=== PATIENT | female | born 1995 | race Caucasian/White ===

== ENCOUNTER 2018-12-16 18:05 | Emergency (ER) | payer OTHER, SELFPAY ==
[2018-12-16 18:10] VITALS: BP 101/80; PULSE 67; RESP 16; TEMP 36.9; O2SAT 100; BMI 28.9
[2018-12-16] MEDS: IBUPROFEN 400 MG TABLET 800 MG PO (18:48)
--- NOTE | 2018-12-17 00:50 | ED_ITS ---
HPI - URI/Sore Throat General Chief Complaint: Upper Respiratory Symptoms Stated Complaint: thinks she has the flu Time Seen by Provider: 12/16/18 18:11 Source: patient Mode of arrival: ambulatory Limitations: no limitations History of Present Illness HPI Narrative: 23-year-old female nonsmoker, otherwise healthy presents with 4-5 days of headache, sore throat, dry hacking cough, fever, nausea and body aches. Her has similar symptoms and has been sick for a few days longer than her. She is able to eat and drink without difficulty. She did not have her flu shot this year. MD Complaint: fever, cough and sore throat Onset (ago): day(s) Duration: constant Severity: moderate Exacerbating factors: nothing Able to tolerate fluids by mouth: Yes Context: sick contacts Associated symptoms: fever, chills, headache, sore throat, cough and nausea Related Data Previous Rx's Medication Instructions Recorded ondansetron 4 mg PO TID-QID PRN #10 tab 12/16/18 Allergies Allergy/AdvReac Type Severity Reaction Status Date / Time No Known Drug Allergies Allergy Verified 12/16/18 18:09 Review of Systems Constitutional Reports body ache(s), Reports chills, Reports fever(s), Reports headache(s), Denies lethargy and Denies weakness Eyes Denies change in vision, Denies eye discharge, Denies irritation and Denies loss of vision ENT Ears, Nose, Mouth, and Throat: Denies change in voice, Reports headache(s), Denies neck pain and Reports sore throat Cardiovascular Denies chest pain, Denies irregular heart rhythm, Denies lightheadedness, Denies palpitations, Denies dyspnea, Denies dyspnea on exertion and Denies orthopnea Respiratory Reports cough, Denies dyspnea, Denies dyspnea on exertion and Denies wheezing Gastrointestinal Gastrointestinal: Denies abdominal pain, Denies change in bowel habits, Denies diarrhea, Denies nausea and Denies vomiting Genitourinary Denies hematuria, Denies flank pain, Denies urinary incontinence and Denies urinary urgency Musculoskeletal Denies neck pain Integumentary/Breasts Denies pruritus, Denies erythema, Denies rash and Denies wounds Neurologic Denies confusion, Reports headache(s), Denies loss of vision and Denies weakness Psychiatric Denies anxiety, Denies confusion, Denies depression, Denies homicidal ideation and Denies suicidal ideation Endocrine Denies palpitations Hematologic/Lymphatic Denies easy bruising Allergic/Immunologic Denies wheezing Exam Narrative Exam Narrative: GENERAL: This is a well-nourished, well-developed patient, in mild distress. HEAD: Atraumatic. Normocephalic. No temporal or scalp tenderness. EYES: Pupils equal round and reactive. Extraocular motions intact. No scleral icterus. No injection or drainage. ENT: Nose without bleeding, purulent drainage or septal hematoma. Throat without erythema, tonsillar hypertrophy or exudate. Uvula midline. Airway patent. NECK: Trachea midline. No JVD or lymphadenopathy. Supple, nontender, no meningeal signs. CARDIOVASCULAR: Regular rate and rhythm without murmurs, gallops, or rubs. RESPIRATORY: Clear to auscultation. Breath sounds equal bilaterally. No wheezes, rales, or rhonchi. GASTROINTESTINAL: Abdomen soft, non-tender, nondistended. No hepato- splenomegaly, or palpable masses. No guarding. EXTREMITIES: No clubbing, cyanosis, or edema. No joint tenderness, effusion, or edema noted. BACK: Nontender without deformity or crepitance. No flank tenderness. NEURO: AOx3. SKIN: No rash or erythema. Initial Vital Signs Initial Vital Signs: Vital Signs Temperature 98.4 F 12/16/18 18:10 Pulse Rate 67 12/16/18 18:10 Respiratory Rate 16 12/16/18 18:10 Blood Pressure 101/80 12/16/18 18:10 Pulse Oximetry 100 12/16/18 18:10 Course Orders Ordered: ED Orders 12/16/18 18:10 Influenza A and B by PCR Rapid Stat Discontinued Medications Ibuprofen (Advil) 800 mg PO NOW ONE Stop: 12/16/18 18:48 Last Admin: 12/16/18 18:48 Dose: 800 mg Vital Signs - 8 hr 12/16/18 18:10 Temperature 98.4 F Pulse Rate 67 Respiratory Rate 16 Blood Pressure 101/80 Pulse Oximetry 100 MDM - URI/Sore Throat Lab Data Lab Results 12/16/18 Range/Units 18:10 Influenza A & B (PCR) Positive, type a A (Negative) Discharge Plan Departure Patient Disposition: Home Clinical Impression: Influenza Discharge Date/Time: 12/16/18 20:09 Instructions: DI for Influenza -- Adult Activity Restrictions/Additional Instructions: *You have been diagnosed with [ influenza a ] *What to do: *Take medications as directed: Your prescription has been electronically transmitted to [facility] in [place] at your request *Follow up with your primary care provider in 2-3 days, call for an appointment. Let them know you were seen in the Emergency Department and that we ask that you be seen in follow up *Return to ER if you should have any new, worsening or concerning symptoms Prescriptions: New ondansetron 4 mg tablet,disintegrating 4 mg PO TID-QID PRN (Reason: nausea and vomiting) Qty: 10 RF: 0 Stand Alone Forms: Work/School Release
== END 2018-12-16 20:09 | disposition home or self-care (01) ==
PROVIDERS: Emergency Provider Emergency Medicine
DX: J11.1 Influenza due to unidentified influenza virus with other respiratory manifestations (principal)
CPT/HCPCS: 87400; 99281; 99283

== ENCOUNTER → 2019-12-28 08:58 | Outpatient (CLI) | payer OTHER, SELFPAY | PROVIDERS: Visit Provider Obstetrics & Gynecology | DX: Z34.03 Encounter for supervision of normal first pregnancy, third trimester (principal); R82.90 Unspecified abnormal findings in urine; Z3A.32 32 weeks gestation of pregnancy | CPT/HCPCS: 87086 ==

== ENCOUNTER 2019-12-28 09:27 | Observation (INO) | payer OTHER, SELFPAY ==
[2019-12-28 13:01] LABS: Add Manual Diff / Slide Review NO; Alanine Aminotransferase 12 IU/L (<35); Albumin 3.8 g/dL (3.5-5.0); Albumin Globulin Ratio 1.2 (1.0-2.8); Alkaline Phosphatase 106 U/L (38-126); Aspartate Aminotransferase 19 IU/L (14-36); Basophils Absolute Auto 0 /uL (0-100); Basophils Percent Auto 0.3 % (0-2); Bilirubin Total 0.3 mg/dL (0.2-1.3); Blood Urea Nitrogen 8 mg/dL (7-17); Calcium 9.5 mg/dL (8.4-10.2); Carbon Dioxide 22 mmol/L (22-32); Chloride 104 mmol/L (98-107); Eosinophils Absolute Auto 0 /uL (0-450); Eosinophils Percent Auto 0.3 % (2-4); Estimated Glomerular Filt Rate > 60.0 mL/min (>60); Globulin 3.1 g/dL (1.7-4.1); Glucose 95 mg/dL (70-100); HEMOLYSIS < 15 (0-50); Hematocrit 33.5 % (36-46); Hemoglobin 11.8 g/dL (12.0-16.0); Lymphocytes Absolute Auto 2000 /uL (1100-4500); Lymphocytes Percent Auto 17.2 % (25-40); Mean Corpuscular HGB Conc 35.2 % (30-36); Mean Corpuscular Hemoglobin 32.6 PG (26-34); Mean Corpuscular Volume 92.6 fL (80-100); Monocytes Absolute Auto 500 /uL (0-900); Monocytes Percent Auto 4.6 % (3-14); Neutrophils Absolute Auto 9100 /uL (1500-7000); Neutrophils Percent Auto 77.6 % (50-75); Platelet Count 275 X10^3/uL (150-400); Potassium 4.2 mmol/L (3.4-5.1); Red Blood Cell Count 3.62 X10^6/uL (4.0-5.2); Sodium 137 mmol/L (137-145); Total Protein 6.9 g/dL (6.3-8.2); White Blood Cell Count 11.7 X10^3/uL (4.5-11.0)
--- NOTE | 2019-12-28 13:09 | PM.PN.1 ---
Subjective Subjective Date Patient Seen: 12/28/19 Time Patient Seen: 12:30 Interval history: Patient sent to L and D after establishing as transfer care in the office at 32 weeks. She reported falling on her knees yesterday at home. Also noted less movement overall recently, believes type of movement has just change. In the office on auscultation the baby was moving quite a bit, normal movement noted but sent her over for monitoring/NST due to the fall yesterday. I also ordered preeclamptic labs due to headache x 1-2 days duration, unrelieved with Tylenol this morning. She does have a history of chronic headaches and migraines and is fatigued, has been awakening frequently at night. She tried Tylenol but without relief. Denies scotomata, nausea, vomiting, abdominal pain. She also reported episodes of cramping, admits to poor oral hydration. Denies leakage of fluid. Reported increased vaginal discharge with itching and wet prep in office showed yeast. Exam Vital Signs (past 8 hours): Afebrile BP 110/66 Narrative Exam Narrative: Cervical exam in office 0/long cervix Initially on the toco she was having contractions every 5 minutes. Contractions gradually spaced after oral hydration to 8-10 minutes, now occasional. NST and extended EFM: 130, moderate variability, reactive, no decelerations Objective Labs Result Diagrams: 12/28/19 12:40 12/28/19 12:40 Labs: Laboratory Results - last 24 hr 12/28/19 12/28/19 12:40 12:40 WBC 11.7 H RBC 3.62 L Hgb 11.8 L Hct 33.5 L MCV 92.6 MCH 32.6 MCHC 35.2 RDW 13.0 Plt Count 275 Neut % (Auto) 77.6 H Lymph % (Auto) 17.2 L [place] % (Auto) 4.6 Eos % (Auto) 0.3 L Baso % (Auto) 0.3 Neut # (Auto) 9100 H Lymph # (Auto) 2000 [place] # (Auto) 500 Eos # (Auto) 0 Baso # (Auto) 0 Sodium 137 Potassium 4.2 Chloride 104 Carbon Dioxide 22 BUN 8 Creatinine 0.40 L Estimated GFR > 60.0 BUN/Creatinine Ratio 20.0 Glucose 95 Calcium 9.5 Total Bilirubin 0.3 AST 19 ALT 12 Alkaline Phosphatase 106 Total Protein 6.9 Albumin 3.8 Globulin 3.1 Albumin/Globulin Ratio 1.2 Assessment & Plan Assessment and plan (1) Decreased movement affecting management of in third trimester: Current visit: Yes Status: Acute Assessment & Plan narrative: NST reactive. Good movement noted on patient's abdomen during exam Also status post fall yesterday. EFM reassuring and spacing of contractions after hydration reassuring. Exam is benign. Preeclamptic labs ordered due to persistent mild headache due to lack of sleep. Labs normal, no signs of preeclampsia. BP normal. Plan: Discharge home, return for frequent contractions, vaginal bleeding, leakage of fluid, decreased movement, or abdominal pain. Follow-up appointment in 1 week. Continue better oral hydration. Rest today. Tomorrow may resume normal activity.
== END 2019-12-28 13:16 | disposition home or self-care (01) ==
PROVIDERS: Admitting Provider Obstetrics & Gynecology; Referring Provider Obstetrics & Gynecology; Visit Provider Obstetrics & Gynecology
DX: O36.8130 Decreased fetal movements, third trimester, not applicable or unspecified (principal); Z3A.32 32 weeks gestation of pregnancy; R51 Headache; W18.30XA Fall on same level, unspecified, initial encounter; R82.90 Unspecified abnormal findings in urine
CPT/HCPCS: 36415; 59025; 59050; 80053; 85025; 87086; G0378; G0379

== ENCOUNTER 2020-01-01 19:50 | Observation (INO) | payer OTHER, SELFPAY ==
[2020-01-01 20:21] LABS: RBC Urine None Seen (0-5/HPF)
[2020-01-01 20:22] LABS: Appearance Urine UA SL CLOUDY; Bilirubin Urine UA NEGATIVE (NEGATIVE); Color Urine UA YELLOW; Glucose Urine UA NEGATIVE (Negative); Ketones Urine UA NEGATIVE (NEGATIVE); Leukocyte Esterase Urine UA 3+ (NEGATIVE); Nitrite Urine UA NEGATIVE (Negative); Occult Blood Urine UA NEGATIVE (Negative); Protein Urine UA NEGATIVE (Negative); Specific Gravity Urine UA <=1.005 (1.000-1.035); Urobilinogen Urine UA 0.2 E.U./dL (0.2)
[2020-01-01 20:23] LABS: pH Urine UA 6.5 (4.5-8.0)
[2020-01-01 20:27] LABS: WBC Urine 5-10/HPF (0-5/HPF)
[2020-01-01 20:28] LABS: Bacteria Urine Few (2-10); Culture Indicated Urine Specimen Cultured; Squamous Epithelial Cell Urine 0-1 /HPF (0-5/HPF)
[2020-01-01] MEDS: NIFEdipine 10 MG CAPSULE PO ×4 (20:48→21:55)
--- NOTE | 2020-01-01 21:53 | P.TNLD_ITS ---
Visit Information Visit Information Date of evaluation: 01/01/20 Primary OB Provider: Nichole Fontanez On-call OB Provider: Leni Booker Reason for Evaluation: Yes rule out labor Comments/Additional reasons for admission: This patient is a 24yo @33+1 presenting to the center for intermittent cramping pain, bladder pressure, urinary frequency, and one episode of scant rust colored discharge on wiping. The patient denies LOF, reports +FM, and denies headache or any other obstetrical or PIH symptoms. Of note, the patient was recently diagnosed with a vaginal yeast infection on 12/27 and was prescribed vaginal monistat, but was confused about the duration of therapy, has not started treatment, and also has symptoms of this. The patient recently transferred care from the [facility], and reports that she is unaware of any complications or placental abnormalities. Vital Signs Vital Signs: 114/71, HR 97, T 36.2C PFSH Medical History 32 weeks gestation of (Acute) Anxiety and depression (Acute) Arm fracture, left (Acute) Decreased movement affecting management of in third trimester (Acute) Migraines (Acute) PTSD (post-traumatic stress disorder) (Acute) Surgical History Hx of tonsillectomy (Acute) [place] teeth removed (Acute ~2019) Family History Mother Depression Father Depression Grandmother Kidney disease Migraines Grandfather Lung disease Arthritis Grandfather No problems noted. 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) current occupational exposures/hazards: No special al needs: No Smoking Status: Never smoker second hand exposure: No ( does smoke but aware) alcohol intake: former (pre-) substance use type: does not use Review of Systems Constitutional Constitutional: Reports system reviewed and no additional complaints, except as documented Cardiovascular Cardiovascular: Reports system reviewed; no additional complaints, except as documented Respiratory Respiratory: Reports system reviewed and no additional complaints, except as documented Gastrointestinal Gastrointestinal: Reports as per HPI Genitourinary Genitourinary: Reports as per HPI Neurologic Neurologic: Reports system reviewed and no additional complaints, except as documented Exam GI Other: Per staff, abdomen non-tender Other: Per nursing staff, cervix very posterior, long, ?external os fingertip vs closed. No signs of vaginal bleeding on exam. Objective Labs Labs: Laboratory Results - last 24 hr 01/01/20 20:05 Urine Color Yellow Urine Appearance Sl cloudy Urine pH 6.5 Ur Specific Cassel <=1.005 Urine Protein Negative Urine Glucose (UA) Negative Urine Ketones Negative Urine Occult Blood Negative Urine Nitrate Negative Urine Bilirubin Negative Urine Urobilinogen 0.2 Ur Leukocyte Esterase 3+ H Urine RBC None seen Urine WBC 5-10/hpf H Ur Squamous Epith Cells 0-1 /hpf Urine Bacteria Few (2-10) H Ur Culture Indicated? Specimen cultured Evaluation Evaluation Baseline heart rate: 140 Variability: Average (6-10) monitor accelerations: Present monitor decelerations: Absent Uterine Contraction Intensity: Mild Laboratory results: Laboratory Tests 01/01/20 20:05 Urine Color Yellow Urine Appearance Sl cloudy Urine pH 6.5 Ur Specific Cassel <=1.005 Urine Protein Negative Urine Glucose (UA) Negative Urine Ketones Negative Urine Occult Blood Negative Urine Nitrate Negative Urine Bilirubin Negative Urine Urobilinogen 0.2 Ur Leukocyte Esterase 3+ H Urine RBC None seen Urine WBC 5-10/hpf H Ur Squamous Epith Cells 0-1 /hpf Urine Bacteria Few (2-10) H Ur Culture Indicated? Specimen cultured Diagnosis, Plan/Disposition Plan/Disposition Plan: Patient has UA c/w UTI, has a long and closed cervix, has spaced contractions, and has an untreated yeast infection. She will be discharged home with routine precautions, with keflex for her UTI and to use monistat for her yeast infection. OB Disposition: home
[2020-01-01] MEDS: cephALEXin 250 MG CAPSULE 500 MG PO (22:08)
== END 2020-01-01 22:30 | disposition home or self-care (01) ==
PROVIDERS: Admitting Provider Obstetrics & Gynecology; Referring Provider Obstetrics & Gynecology; Visit Provider Obstetrics & Gynecology
DX: O46.93 Antepartum hemorrhage, unspecified, third trimester (principal); O47.03 False labor before 37 completed weeks of gestation, third trimester; O98.813 Other maternal infectious and parasitic diseases complicating pregnancy, third trimester; Z3A.33 33 weeks gestation of pregnancy
CPT/HCPCS: 59025; 59050; 81001; 87086; G0378; G0379

== ENCOUNTER → 2020-01-04 16:02 | Outpatient (CLI) | payer OTHER, SELFPAY ==
[2020-01-04 17:06] LABS: Fetal Fibronectin Negative
== END ==
PROVIDERS: Visit Provider Obstetrics & Gynecology
DX: O47.00 False labor before 37 completed weeks of gestation, unspecified trimester (principal)
CPT/HCPCS: 82731

== ENCOUNTER 2020-01-04 16:18 | Observation (INO) | payer OTHER, SELFPAY ==
--- NOTE | 2020-01-04 18:37 | P.TNLD_ITS ---
Visit Information Visit Information Date of evaluation: 01/04/20 Primary OB Provider: Nichole Fontanez Reason for Evaluation: No pre-term labor Comments/Additional reasons for admission: 24-year-old G1 female sent from her visit to rule out frequent contractions. She was monitored 1 week ago for decreased movement and was noted to have contractions which spaced after hydration. She had had episodes of cramping during . Three days ago she was seen in L&D and had some contractions but without cervical change. Today she reported at a routine office visit that she felt the contractions were becoming stronger. Exam in the office cervix 0/long/posterior. Vital Signs Vital Signs: Afebrile, BP 113/67, pulse 100 In office speculum placed. Increased yellow discharge consistent with current yeast infection noted. FN collected On digital exam cervix 0/long. Repeat exam in L&D 2-1/2 hours later cervix 0/long/posterior [facility] Medical History (Updated 01/04/20 @ 18:45 by Nichole Fontanez MD) 33 weeks gestation of (Acute) Anxiety and depression (Acute) Arm fracture, left (Acute) Migraines (Acute) uterine contractions in third trimester, antepartum (Acute) PTSD (post-traumatic stress disorder) (Acute) Surgical History Hx of tonsillectomy (Acute) [place] teeth removed (Acute ~2019) Social History marital status: household members: spouse (Currently Depolyed) pets and animals: Yes (X 1 dog) education level: college ([employer]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 Reports good movement Objective Labs Labs: fibronectin collected today: negative Evaluation Evaluation Baseline heart rate: 130 Variability: Moderate (11-25) monitor accelerations: Present monitor decelerations: Absent Uterine Contraction Intensity: Mild Category of Tracing: I Cervical dilation (cm): 0 Cervical effacement (%): 0 station: -4 Laboratory results: FFN negative Comments: Contractions initially every 7-8 minutes, decreasing frequency to every 10+ minutes. She did have episode of increased contractions noted recently with a full bladder, resolved after emptying her bladder. Diagnosis, Plan/Disposition Final Diagnosis (1) uterine contractions in third trimester, antepartum: Current Visit: Yes Status: Acute Plan/Disposition Plan: No evidence of labor. Cervix is unchanged. Contractions space, more irregular after oral hydration. FFN is negative, reassuring that she is low risk to progress into labor. -Will discharge home. Given precautions to return if she feels contractions are becoming stronger or more frequent, for leakage of fluid, vaginal bleeding or decreased movement. -Follow-up appointment in 1 week with an ultrasound due to measuring size greater than gestational age today. -Advise continue with good hydration
== END 2020-01-04 18:30 | disposition home or self-care (01) ==
PROVIDERS: Admitting Provider Obstetrics & Gynecology; Referring Provider Obstetrics & Gynecology; Visit Provider Obstetrics & Gynecology
DX: O47.03 False labor before 37 completed weeks of gestation, third trimester (principal); O23.43 Unspecified infection of urinary tract in pregnancy, third trimester; Z3A.33 33 weeks gestation of pregnancy
CPT/HCPCS: 59025; 59050; 82731; G0378; G0379

== ENCOUNTER → 2020-01-10 14:13 | Outpatient (CLI) | payer OTHER, SELFPAY ==
--- NOTE | 2020-01-10 14:14 | DI.US.S_ITS ---
PROCEDURE: US OB LIMITED INDICATIONS: EFW; SLIM OUTSIDE/PRIOR DATING DATA: Last menstrual period (LMP): 05/14/19. LMP-based estimated date of delivery (JASWINDER): 02/18/20. First dating scan (date and location): 01/10/20. Estimated date of delivery (JASWINDER) from first dating scan: 02/07/20. TECHNIQUE: Real-time scanning was performed of the fetus, with image documentation. Endovaginal scanning: not performed COMPARISON: None. FINDINGS: A single living intrauterine gestation is present. Presentation: Vertex. Placenta: Placental position is posterior, without previa. Amniotic fluid index: 10.0 cm, normal range is 5-24 cm. heart rate: 145 beats per minute. Biparietal diameter measures 8.7 cm, 35 weeks zero days Head circumference measures 32.6 cm, 37 weeks zero days Abdominal circumference measures 33.7 cm, 37 weeks 4 days Femur length measures 6.7 cm, 34 weeks 3 days Composite gestational age 36 weeks zero days Estimated weight 2941 g, 93rd percentile Normal appearance of the face/orbits, spine, heart, chest, stomach, kidneys, urinary bladder, left upper and lower limbs. However the remaining anatomic survey incomplete and not well visualized due to advanced gestational age IMPRESSION: Single living intrauterine fetus in vertex presentation Normal SLIM Expected interval growth based on reported JASWINDER although outside comparison examination not available in PACS anatomic survey incomplete although within normal limits where visualized as above Dictated by: Nacho Bass M.D. on 01/10/2020 at 17:16 Approved by: Nacho Bass M.D. on 01/10/2020 at 17:21
== END ==
PROVIDERS: Referring Provider Obstetrics & Gynecology; Visit Provider Obstetrics & Gynecology
DX: O36.63X0 Maternal care for excessive fetal growth, third trimester, not applicable or unspecified (principal); Z3A.36 36 weeks gestation of pregnancy
CPT/HCPCS: 76815

== ENCOUNTER → 2020-01-24 10:17 | Outpatient (CLI) | payer OTHER, SELFPAY ==
[2020-01-25 10:17] LABS: Strep Grp B PCR POS for Grp B Strep
== END ==
PROVIDERS: Visit Provider Obstetrics & Gynecology
DX: Z34.03 Encounter for supervision of normal first pregnancy, third trimester (principal); Z3A.36 36 weeks gestation of pregnancy
CPT/HCPCS: 87653

== ENCOUNTER 2020-01-28 10:04 | Inpatient (IN) | payer OTHER, SELFPAY ==
[2020-01-28 12:38] LABS: Add Manual Diff / Slide Review NO; Basophils Absolute Auto 0 /uL (0-100); Basophils Percent Auto 0.2 % (0-2); Eosinophils Absolute Auto 0 /uL (0-450); Eosinophils Percent Auto 0.4 % (2-4); Hematocrit 33.6 % (36-46); Hemoglobin 11.5 g/dL (12.0-16.0); Lymphocytes Absolute Auto 1300 /uL (1100-4500); Lymphocytes Percent Auto 12.9 % (25-40); Mean Corpuscular HGB Conc 34.4 % (30-36); Mean Corpuscular Hemoglobin 32.3 PG (26-34); Mean Corpuscular Volume 93.9 fL (80-100); Monocytes Absolute Auto 600 /uL (0-900); Neutrophils Absolute Auto 8300 /uL (1500-7000); Neutrophils Percent Auto 80.5 % (50-75); Platelet Count 245 X10^3/uL (150-400); Red Blood Cell Count 3.58 X10^6/uL (4.0-5.2); White Blood Cell Count 10.3 X10^3/uL (4.5-11.0)
--- NOTE | 2020-01-28 12:40 | PM.OBHP.1 ---
OB HPI Date/Time Date of admission: 01/28/20 Date Patient Seen: 01/28/20 Time Patient Seen: 12:15 History of Present Condition Chief complaint: MATERNITY : 1 Para: 0 Estimated Date of Delivery: 02/18/20 Narrative: Hope Case is a 24 year old female @ 37wks by LMP and 11wk US who presented for evaluation of SROM. Had large gush of clear fluid at 0930 this morning. Lots of FM and occasional moderate contractions. No VB. Had uncomplicated PN care w/ [facility] and transfer to Dr. Fontanez @ 32wks. Spouse is deployed and her mother is on a plane here, will arrive around 9pm. Pt declines augmenting labor until closer to mother's arrival, if needed. Pt desires epidural in labor. Has used pencillin before without adverse reaction. History of Present care: good care Dating criteria: LMP confirmed by 1st trimester US Ultrasounds: normal mid trimester US Obstetrical complications: none and other Medical complications: psychiatric Preadmission Labs Blood type: A (+) positive -: Antibody screen: negative, GBS status: positive, HBsAG: negative, HIV: negative and RPR/VDLR: negative -: Chlamydia screen: not detected and Gonorrhea screen: not detected -: Rubella: immune and Varicella: unknown HCT: 33.6 HCAB: negative Sequential screen: negative 3 hr GTT: 3 hr (passed) Narrative: failed 1hr, passed 3hr gtt Evaluation Evaluation Baseline heart rate: 135 Variability: Moderate (11-25) monitor accelerations: Absent monitor decelerations: Absent Contraction Frequency (minutes): 8 Uterine Contraction Intensity: Mild Category of Tracing: I Comments: CE deferred for PROM declining augmentation. Last CE in clinic @36wks was closed. [facility] Medical History 33 weeks gestation of (Resolved) Anxiety and depression (Acute) Arm fracture, left (Acute) Migraines (Acute) uterine contractions in third trimester, antepartum (Acute) PTSD (post-traumatic stress disorder) (Acute) Surgical History Hx of tonsillectomy (Acute) [place] teeth removed (Acute ~2019) Family History Mother Depression Father Depression Grandmother Kidney disease Migraines Grandfather Lung disease Arthritis Grandfather No problems noted. 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: No special al needs: No Smoking Status: Never smoker second hand exposure: No ( does smoke but aware) alcohol intake: former (pre-) substance use type: does not use Meds Home Medications and Allergies Home Medications Medication Instructions Recorded Confirmed Type prenat.vits,jong,ijw-jrch-jznlt 1 tab PO DAILY 12/23/19 01/10/20 History sertraline 50 mg tablet 50 mg PO DAILY #90 tab 12/28/19 01/10/20 Rx probiotic PO 01/04/20 01/10/20 History triamcinolone acetonide 0.1 % 1 applictn TOP BID 14 Days #30 gram 01/04/20 01/10/20 Rx topical ointment Allergies Allergy/AdvReac Type Severity Reaction Status Date / Time nitrofurantoin Allergy Hives Verified 01/10/20 15:36 [From Macrobid] phenazopyridine [From Azo] Allergy Hives Verified 01/10/20 15:36 Review of Systems Review of Systems ROS: Yes All systems reviewed with the patient and are negative except as otherwise documented Exam Vital Signs (past 8 hours): BP 117/75, HR-101, T36.4 Presentation: vertex Estimated Weight (lbs): 7 Amniotic Fluid: clear Other: Vertex by Addy's Objective Labs Result Diagrams: 01/28/20 12:25 Assessment and Plan Assessment and Plan Assessment and Plan narrative: Admit, routine orders w/ PCN for GBS. Labor support PRN. May have epidural when requested, aware and planning to place it around 3pm. Counseled on options for active vs expectant management of PROM and pt elects expectant management at this time. Reassess in 4 hours or sooner, PRN. Time Spent with Patient Total time spent with greater than 50% in coordination of care (as documented) at patient's floor/unit and/or counseling patient:: 25 - 35 minutes
[2020-01-28] MEDS: PENICILLIN G POTASSIUM 5,000,000 UNIT in DEXTROSE 5% IN WATER 250 ML IV (12:45)
[2020-01-28] MEDS: LACTATED RINGERS 1,000 ML 100 ML IV ×2 (12:45→17:00)
--- NOTE | 2020-01-28 15:00 | PM.OBPNLAB ---
Date/Time Date Patient Seen: 01/28/20 Time Patient Seen: 15:00 Pain Control Pain control: tolerating well Comments: Feeling ocnstant back pain and rare, mild to moderate contractions. Planning epidural soon. Has already made a plan w/ . Pelvic Exam station: -4 Comments: deferred, not yet in active labor Contractions Contractions on admission: irregular Monitor mode: External Contraction frequency (min): 8 Contraction intensity: Mild Status status: Category l Heart Rate Baseline: 135 Monitor Accelerations: Absent Monitor Decelerations: Absent Monitor Variability: Moderate Comments: May switch to IA Assessment and Plan Assessment: other (PROM x 6 hours, not in labor) Plan: continuous present management Comments: Epidural when requested, Reassess in 4-6 hours.
[2020-01-28] MEDS: PENICILLIN G POTASSIUM 3,000,000 UNIT/50 ML FROZ.PIGGY 100 UNIT IV ×2 (17:00→21:11)
[2020-01-28 18:36] VITALS: BP 117/75
--- NOTE | 2020-01-28 18:52 | PM.OBPNLAB ---
Date/Time Date Patient Seen: 01/28/20 Time Patient Seen: 18:40 Pain Control Pain control: epidural Comments: Patient comfortable. BP 121/81, [id number], [id number]%, T36.1C Temporal 2nd dose of PCN prophylaxis starting now Pelvic Exam Dilation (cm): 2 Effacement (%): 50 station: -4 Amniotic membrane status: Leaking Comments: Clear fluid Checked by RN immediately after epidural placement Contractions Contractions on admission: irregular Monitor mode: External Contraction frequency (min): 5 Contraction duration (min): 1 Contraction phase: Resting Contraction intensity: Mild Status status: Category l Heart Rate Baseline: 125 Monitor Accelerations: Present Monitor Decelerations: Absent Monitor Variability: Moderate Assessment and Plan Assessment: other Plan: begin patient augmentation Comments: Counseled on recommendation for pitocin augmentation, pt consents. Reassess in 4-6 hours or sooner, PRN.
[2020-01-28] MEDS: OXYTOCIN PREMIX 30 UNIT/500 ML PLAST..BAG IV (19:36)
[2020-01-28] MEDS: SERTRALINE 50 MG TABLET PO (21:11)
--- NOTE | 2020-01-29 00:51 | PM.OBPNLAB ---
Date/Time Date Patient Seen: 01/29/20 Time Patient Seen: 12:30 Pain Control Pain control: epidural Comments: VS: BP 108/56, HR96, T37.2C Temporal Pelvic Exam Dilation (cm): 5 Effacement (%): 90 station: -1 Amniotic membrane status: Leaking Contractions Contractions on admission: irregular Monitor mode: External Pitocin rate (mU/min): 6 Contraction frequency (min): 2 Contraction duration (min): 60 Contraction pattern: Regular Contraction phase: Resting Contraction intensity: Strong/Firm Status status: Category l Heart Rate Baseline: 145 Monitor Accelerations: Present Monitor Decelerations: Variable Monitor Variability: Moderate Assessment and Plan Assessment: active labor Plan: continuous present management
[2020-01-29] MEDS: PENICILLIN G POTASSIUM 3,000,000 UNIT/50 ML FROZ.PIGGY 100 UNIT IV ×2 (01:01→05:20)
[2020-01-29] MEDS: LACTATED RINGERS 1,000 ML 100 ML IV (01:05)
[2020-01-29] MEDS: FENT 2MCG/ML BUPIV 0.125% EPI 200 MCG/100 ML PLAST..BAG 10 MCG EPIDURAL (01:34)
--- NOTE | 2020-01-29 08:34 | P.PCNOB_ITS ---
Events: Labor Augmentation Labor & Delivery Delivery date: 01/29/20 Intrapartal events: None Cervical ripening method: none Induction method: per pitocin protocol Delivery augmentation: pitocin Delivery monitor: external FHT and external uterine Route of delivery: L&D Laceration Description: None Estimated blood loss (mL): 100 Anesthesia type: Epidural Narrative: Pt was examined and found to be 10/100%/+2 station at 0425. Pitocin was off at this time. FHR Cat I. Pushing was initiated at 0430. Coaching and encouragement and pitocin augmentation led to slow, but steady descent of vertex. Fluid remained clear throughout labor (total ROM 23.5 hours) and there were no signs of infection. NSVB of a viable baby boy in direct OA position w/ no nuchal cord @ 0850. Shoulders were transverse and patient was unable to push d/t fatigue. CNM manually reduced both arms and lifted to maternal abdomen for drying and stimulation. At 30 seconds of life there was minimal respiratory effort, so the cord was double clamped and cut and was taken to warmer for NRP. HR>100, no respiratory effort. PPV was given for approximately 45 seconds with appropriate rise in color, SpO2 and then respiratory effort. Pitocin was increased to 350mL/hr for AMTSL. Hospital cord blood hold sample was collected. Gentle cord traction and single maternal push led to spontaneous, Schultze delivery of an apparently intact placenta, membranes and 3VC @ 0823. Fundus immediately firm and bleeding minimal. [place] was placed back on maternal chest for chet-hy-tibf. Vagina and perineum inspected and intact with moderate edema. QBL 100mL. Baby 1: Infant gender: Male Presentation: vertex Placenta delivery description: Spontaneous cord vessel description: 3 Vessels score (1 min): 4 score (5 min): 7 score (10 min): 8 Plan for aftercare: Routine PP orders. Anticipate d/c to home in 24-36 hours.
[2020-01-29] MEDS: DERMOPLAST SPRAY 20% 60 ML 1 SPRAY TOP (12:06)
[2020-01-29] MEDS: DOCUSATE 100 MG CAPSULE PO (12:07)
[2020-01-29] MEDS: IBUPROFEN 600 MG TABLET PO ×2 (12:07→18:11)
[2020-01-29] MEDS: OXYCODONE IR 5 MG TABLET PO (17:10)
[2020-01-29] MEDS: SERTRALINE 50 MG TABLET PO (21:27)
[2020-01-30] MEDS: IBUPROFEN 600 MG TABLET PO ×2 (00:47→08:32)
--- NOTE | 2020-01-30 08:25 | P.DS_ITS ---
Discharge Providers Provider Date of admission: 01/28/20 10:04 Discharge Date: 01/30/20 Primary care physician: Consults: 01/30/20 08:30 Consult to Retail Service Technician Routine Comment: 01/30/20 08:43 Consult to Retail Service Technician Routine Comment: Discharge provider: Germaine Olmos CNM Summary Hospital Course Date Patient Seen: 01/30/20 Time Patient Seen: 08:15 Hospital Course: Uncomplicated 24 hours s/p NSVB. Voiding and ambulating independently. Lochia light, no clots. independently w/ a nipple shield. Tolerating general diet. Pain is well controlled w/ PO meds. Eager for d/c to home. Plans to f/u w/ [facility] for care. Peripartum Data Infant Delivery Method: Natural Vaginal Laceration description: None complications: none [place] 1: Gender: Male Disposition of : home Discharge Diagnosis (1) Encounter for full-term uncomplicated delivery: Start Date: 01/29/20 Start Time: 08:15 Status: Acute Problem Details: Routine care and teaching (2) Hemorrhoids during puerperium: Start Date: 01/29/20 Status: Acute Problem Details: mild to moderate, external, intact Status at Discharge Cognitive/behavioral status at discharge: oriented Functional status at discharge: independent ambulation Overall status at discharge: patient is progressing back to baseline Time Spent with Patient Time attestation: Total time spent providing and/or coordinating discharge services: Time spent: Less than 30 minutes Objective Labs Result Diagrams: 01/28/20 12:25 Exam Vital Signs (past 8 hours): BP 111/78, FY48onv, RR16, T97.7F Termporal, XpG159% Other: Fundus firm, @ umbilicus, lochia-light, perineal edema mild, perineum intact. Psych Appearance: grossly normal Speech and Movement: speech and movement normal Mood: congruent mood Attitude: cooperative Other: Flat affect unchanged throughout hospital course Discharge Plan Discharge Plan Patient Disposition: Home Discharge orders & Medications Prescriptions: New docusate sodium [DOK] 100 mg Capsule 100 mg PO BID 14 Days Qty: 28 RF: 0 ibuprofen 600 mg Tablet 600 mg PO Q6HR PRN (Reason: Pain, Mild (1-3)) 14 Days Qty: 60 RF: 2 Continued sertraline [Zoloft] 50 mg tablet 50 mg PO DAILY Qty: 90 RF: 0 probiotic PO RF: 0 triamcinolone acetonide 0.1 % ointment 1 applictn TOP BID 14 Days Qty: 30 RF: 0 prenat.vits,jong,lcy-eulx-lmunw Tablet 1 tab PO DAILY RF: 0 Follow up/Referrals: Nichole Fontanez MD [Physician] - ([place], schedule follow-up w/ @ 6 weeks ) Diet/Activity/Treatments Diet: Regular Activity: pelvic rest x6 weeks Skin/Wound/Dressing Care Report to your healthcare provider any signs of infection, such as:: chills, fever, increased pain, unusual drainage and unusual redness Visit Report/Discharge Packet Instructions: DI for Depression
[2020-01-30] MEDS: DOCUSATE 100 MG CAPSULE PO (08:33)
[2020-01-30] MEDS: PRENATAL VIT,CALC/IRON/FOLIC 1 TABLET 1 TAB PO (08:33)
[2020-01-30 09:11] VITALS: BP 111/74; PULSE 89; RESP 16; TEMP 36.5
== END 2020-01-30 11:25 | disposition home or self-care (01) | DRG 805 ==
PROVIDERS: Nurse Practitioner Obstetrics & Gynecology; Admitting Provider Obstetrics & Gynecology; Referring Provider Obstetrics & Gynecology; Visit Provider Obstetrics & Gynecology
DX: O42.02 Full-term premature rupture of membranes, onset of labor within 24 hours of rupture (principal); O60.14X0 Preterm labor third trimester with preterm delivery third trimester, not applicable or unspecified; Z37.0 Single live birth; Z3A.37 37 weeks gestation of pregnancy; K64.9 Unspecified hemorrhoids; O99.824 Streptococcus B carrier state complicating childbirth
CPT/HCPCS: 01967; 59050; 85025; 86850; 86900; 86901; G0379; J2540; J2590